=== PATIENT | female | born 1990 | race Caucasian/White ===

== ENCOUNTER 2020-09-06 10:26 | Emergency (ER) | payer SELFPAY ==
[2020-09-06] MEDS ORDERED: MORPHINE SULFATE INJ 10 MG/ML VIAL IV ONE (10:41)
[2020-09-06] MEDS ORDERED: ONDANSETRON INJ 4 MG/2 ML VIAL IV ONE (10:41)
[2020-09-06] MEDS ORDERED: SODIUM CHLORIDE 0.9% 1000ML 1,000 ML IVS ONE (10:42)
--- NOTE | 2020-09-06 10:43 | ED.PDOC ---
History of Present Illness - General Chief Complaint: Abdominal Pain Stated Complaint: Unable to have BM, lower abd pain, N/V Time Seen by Provider: 09/06/20 10:29 Information Source: patient, RN notes reviewed, Vital Signs reviewed Exam Limitations: no limitations - History of Present Illness Initial Comments: 29 yo F with hx of GERD comes in with cc of lower abdominal pain. states she can't remember the last time she had BM. Yesterday at 9 PM drank a bottle of mag citrate, still no bm. no prior abd surgery. No having n/v. Was taking Motrin/aspirin for pain. no dysuria. Review of Systems - Review of Systems Constitutional: Denies: chills, fever, malaise EENTM: Denies: blurred vision, throat pain Respiratory: Denies: cough, short of breath Cardiology: Denies: chest pain, palpitations Gastrointestinal/Abdominal: States: abdominal pain, constipation, nausea, vomiting. Denies: diarrhea Genitourinary: Denies: dysuria, frequency Musculoskeletal: Denies: back pain, joint pain Skin: Denies: rash Neurological: Denies: numbness, paresthesia, tremors, weakness Endocrine: Denies: unexplained weight gain, unexplained weight loss Hematologic/Lymphatic: Denies: easy bleeding, easy bruising Past Medical History (General) - Patient Medical History Hx Seizures: No Hx Stroke: No Hx Dementia: No Hx Asthma: No Hx of COPD: No Hx Cardiac Disorders: No Hx Congestive Heart Failure: No Hx Pacemaker: No Hx Hypertension: No Hx Thyroid Disease: No Hx Diabetes: No Hx Gastroesophageal Reflux: Yes Hx Renal Disease: No Hx Cancer: No Hx of HIV: No Hx Hepatitis B: No Hx Hepatitis C: No Hx MRSA: No Hx Other PMH: No Surgical History: no surgical history Family Medical History - Family History Mother Family History: No Known Physical Exam - Physical Exam General Appearance: Alert, Anxious, Comfortable, No apparent distress, Well Developed, Well Groomed, Well Hydrated, Well Nourished Eyes, Ears, Nose, Throat Exam: PERRL/EOMI, normal ENT inspection Neck: non-tender, full range of motion, supple, normal inspection Respiratory: chest non-tender, lungs clear, normal breath sounds, no respiratory distress, no accessory muscle use Cardiovascular/Chest: normal peripheral pulses, regular rate, rhythm, no edema Peripheral Pulses: 2+ Gastrointestinal/Abdominal: normal bowel sounds, non tender, soft, no organomegaly, no pulsatile mass Rectal Exam: deferred Back Exam: normal inspection, no CVA tenderness, no vertebral tenderness Extremity: normal range of motion, non-tender, normal inspection, no pedal edema, no calf tenderness, normal capillary refill Neurologic: no motor/sensory deficits, alert, normal mood/affect, oriented x 3 Skin Exam: normal color, warm/dry Progress - Progress Progress: 09/06/20 12:08 Partial ddx: appendicitis, pancreatitis, gallstones, sbo, hernia, constipation patient given morphine, zofran and NS bolus. Also heating pad. given Enema, only helped a little. pain continues, ct abd unremarkable. will give toradol and reglan. The data reviewed when caring for this patient included: nurse notes, prior records, etc. The history and assessments from nurses notes were reviewed and considered, and the patient's home medication list was also reviewed and considered. My assessment and the results of testing completed here in the ED were discussed with the patient/family. All questions were answered, and they express understanding of my assessment and the plan. They have been instructed to return if their symptoms worsen, and have been asked to follow up with their primary care physician to recheck today's presenting complaint. Strict return precautions given. I have reviewed medication, benefits, alternatives and side effects. Patient decided to proceed with medication. Samantha Taylor DO #801 - EKG/XRAY/CT CT: abd/pelvis: no acute pathology. Departure - Departure Clinical Impression: Abdominal pain Qualifiers: Abdominal location: left lower quadrant Qualified Code(s): R10.32 - Left lower quadrant pain Constipation Qualifiers: Constipation type: unspecified constipation type Qualified Code(s): K59.00 - Constipation, unspecified Time of Disposition: 11:50 Disposition: Discharge to Home or Self Care Departure Forms: ED Discharge - Pt. Copy, Patient Portal Self Enrollment Instructions: DI for Abdominal Pain-Adult, Constipation in Adults, High Fiber Diet Diet: other - high fiber diet, drink plenty of fluids Activity: increase activity as tolerated Prescriptions: Docusate Sodium [Colace Cap] 100 mg PO BID PRN #30 cap PRN Reason: Constipation Polyethylene Glycol 3350 [Miralax] 17 gm PO DAILY 15 Days #238 bottle Ondansetron HCl [Zofran] 4 mg PO TID PRN #15 tab PRN Reason: Vomiting Home Medications: Ambulatory Orders Docusate Sodium [Colace Cap] 100 mg PO BID PRN #30 cap 09/06/20 Ondansetron HCl [Zofran] 4 mg PO TID PRN #15 tab 09/06/20 Polyethylene Glycol 3350 [Miralax] 17 gm PO DAILY 15 Days #238 bottle 09/06/20
--- NOTE | 2020-09-06 11:47 | CT ---
EXAM: Abdomen/Pelvis w/Contrast CLINICAL INDICATION: Abdominal pain COMPARISON: There is no previous study for comparison. TECHNIQUE: The CT scan was done using contiguous axial 5 mm postcontrast sections through the abdomen and pelvis including IV contrast. This exam was performed according to our departmental dose-optimization program, which includes automated exposure control, adjustment of the mA and/or kV according to patient size and/or use of iterative reconstruction technique. FINDINGS: The visualized portions of the lung bases are clear. There is fatty change in the liver without any focal hepatic abnormality. The liver, gallbladder, kidneys, adrenal glands, spleen, and pancreas are otherwise unremarkable. The aorta is normal in caliber. The appendix is normal. There are no dilated loops of small bowel. There is no free air, free fluid, or abscess. IMPRESSION: No evidence of an acute intra-abdominal process. Electronically signed by: Jacques Cuello MD 09/06/2020 11:45 AM [employer]
[2020-09-06] MEDS ORDERED: SODIUM PHOS/BIPHOS ENEMA ADULT 133 ML BTTL PR ONE (11:49)
[2020-09-06] MEDS ORDERED: METOCLOPRAMIDE HCL INJ 10 MG/2 ML VIAL IV ONE (13:06)
[2020-09-06] MEDS ORDERED: KETOROLAC TROMETHAMINE INJ 30 MG/ML VIAL IV ONE (13:07)
[2020-09-06 13:52] VITALS: BP 111/59; TEMP 97.2; O2SAT 99
== END 2020-09-06 13:30 | disposition home or self-care (01) ==
LOC: ER 10:26
DX: K59.00 Constipation, unspecified (principal); R10.32 Left lower quadrant pain; R11.2 Nausea with vomiting, unspecified; K21.9 Gastro-esophageal reflux disease without esophagitis
CPT/HCPCS: 36415; 74177; 80053; 80329; 81001; 83690; 83735; 84703; 85025; J1885; J2270; J2405; J2765; J7030